=== PATIENT | female | born 2000 | race Caucasian/White ===

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

== ENCOUNTER 2019-04-16 23:54 | Emergency (ER) | payer OTHER ==
[~2019-04-16] VITALS: Ht 162.6 cm; Wt 90.0 kg
[2019-04-17] MEDS ORDERED: AUGMENTIN500TAB PO (00:49)
[2019-04-17 01:00] VITALS: BP 124/72
== END 2019-04-17 01:00 | disposition home or self-care (01) ==
LOC: ED 23:54
DX: S81.852A Open bite, left lower leg, initial encounter (principal); S90.572A Other superficial bite of ankle, left ankle, initial encounter; S50.372A Other superficial bite of left elbow, initial encounter; S60.572A Other superficial bite of hand of left hand, initial encounter; F17.290 Nicotine dependence, other tobacco product, uncomplicated; W54.0XXA Bitten by dog, initial encounter; Y93.89 Activity, other specified; Y92.410 Unspecified street and highway as the place of occurrence of the external cause